=== PATIENT | female | born 1955 | race Caucasian/White ===

== ENCOUNTER 2019-01-31 07:12 | Day surgery (SDC) | payer BC ==
[~2019-01-31] VITALS: Ht 154.9 cm; Wt 104.7 kg
[2019-01-31] VITALS (23 sets, daily range): BP systolic 133–175; BP diastolic 58–77; PULSE 68–86; RESP 16–22; Ht 154.9 cm; Wt 104.7 kg
[~2019-01-31 07:12] MED LIST: AMLO2.5T78 PO; ASPI-817 PO; CHOL100062 PO; CLOT30CR24 TOP; DIAZEPAM 5 MG TAB PO ONE; DIPHENHYDRAMINE 50 MG CAP PO ONE; DOCU-159 PO; FAMOTIDINE 20 MG TAB PO ONE; GABA300C16 PO; GLIM4TAB PO; ISOS30TA67 PO; LANT3I SC; LORA0.5T PO; SERT50TA6 PO; SITA100T11 PO; SOD CHLORIDE 0.45% 1,000 ML IV SCH; TERB250T46 PO; TRIA15CR55 TOP; VALS1TAB82 PO
[2019-01-31] MEDS ORDERED: SITA100T11 PO (08:12)
[2019-01-31] MEDS ORDERED: GLIM4TAB PO (08:12)
[2019-01-31] MEDS ORDERED: SIMV40TA2 PO (08:13)
[2019-01-31] MEDS ORDERED: DOCU100T PO (08:13)
[2019-01-31] MEDS ORDERED: ASPI81TA52 PO ×2 (08:13→08:14)
[2019-01-31] MEDS ORDERED: METO-407 PO (08:13)
[2019-01-31] MEDS ORDERED: SERT-165 PO (08:14)
[2019-01-31] MEDS ORDERED: RANO10002 PO (08:14)
[2019-01-31] MEDS ORDERED: COMBIG5 BOTH EYES (08:15)
[2019-01-31] MEDS ORDERED: LATA2.5D2 BOTH EYES (08:15)
[2019-01-31] MEDS ORDERED: HEPARIN 1000 UNITS/ML 10 ML INJ ONE (09:28)
[2019-01-31] MEDS ORDERED: MIDAZOLAM 1 MG/ML 2 ML INJ ONE (09:28)
[2019-01-31] MEDS ORDERED: FENTAnyl 50 MCG/ML VIAL ONE (09:28)
[2019-01-31] MEDS ORDERED: NITROGLYCERIN (IC) 100 MCG/ML INJ ONE (09:29)
[2019-01-31] MEDS ORDERED: VERAPAMIL 5 MG INJ ONE (09:29)
[2019-01-31] MEDS ORDERED: IODIXANOL LOCM 100 ML BTL ONE (10:16)
[2019-01-31] MEDS ORDERED: LIDOCAINE 1% (MDV) 20 ML INJ ONE (10:16)
[2019-01-31] MEDS ORDERED: SOD CHLORIDE 0.9% 1,000 ML IV SCH (10:31)
--- NOTE | 2019-01-31 10:34 | SIPON ---
Date/Time of Note Date/Time of Note DATE: 01/31/19 TIME: 10:33 Operative Report Preoperative Diagnosis 1.Chest pain 2.abnl CTA Postoperative Diagnosis 1.nonobstructive cad 2.patent LCX stents Operation/Procedure Performed 1.[facility] Surgeon see signature line sales support assistant Bravo Anesthesia: moderate sedation Estimated blood loss: minimal Transfusion Required none Specimen none Grafts/Implants none Complications none MARYLIN PAUL Jan 31, 2019 10:34
[2019-01-31] MEDS ORDERED: morphine 2 MG INJ IV PRN (11:00)
[2019-01-31] MEDS ORDERED: ONDANSETRON 4 MG INJ IV PRN (11:00)
[2019-01-31] MEDS ORDERED: ACETAMINOPHEN 325 MG TAB PO PRN (11:00)
[2019-01-31] MEDS ORDERED: AL HYDROX/MG HYDROX/SIMETH 30 ML CUP PO PRN (11:00)
[2019-01-31] MEDS ORDERED: hydrALAzine 20 MG INJ ONE (11:47)
[2019-01-31] MEDS ORDERED: hydrALAzine 20 MG INJ IV ONE (12:00)
--- NOTE | 2019-01-31 14:58 | CARRPT ---
DATE OF PROCEDURE: 01/31/2019 TYPE OF PROCEDURES: 1. Left heart catheterization. 2. Coronary angiography. 3. Measurement of left ventricular end diastolic pressure. 4. Moderate conscious sedation. ATTENDING PHYSICIAN: Marylin Whitt MD REFERRING PHYSICIAN: Kavon Cruz MD INDICATION: Chest pain refractory to medical therapy. TYPE OF ANESTHESIA: Conscious and local. BRIEF HISTORY: Ms. Aburto is a 63-year-old female with history of hypertension, dyslipidemia, ernesto nary artery disease, status post prior PTCA and stent placement to circumflex in 2016, who presented with recurrent complaints of substernal chest pain, underwent a cardiac stress testing revealing ques tionable ischemia and then CTA that revealed possible stenosis in the LAD and circumflex distribution s. Given these findings, the patient was referred for and presents today to undergo left heart stoney terization to assess for possibility of significant obstructive coronary artery disease lending to sy mptoms of chest pain and subsequent positive stress test findings. DESCRIPTION OF PROCEDURE: After informed consent was obtained, the patient was brought to the [facility] cardiac catheterization lab where her right radial area was prepped in a steri le fashion. A 2% lidocaine was infiltrated into the right radial area in order to achieve adequate a nesthesia. Using the modified Seldinger technique, the radial artery was cannulated and a 6-[place] a rterial sheath was placed. A 6-[place] JL3.5 catheter was used to cannulate the left main coronary os tium. With contrast injection, multiple views of left coronary system were obtained. JL3.5 was flori graciela a guidewire and a JR4 was used to cannulate the right coronary arterial ostium. With contrast in jection, multiple views of right coronary system were obtained. JL4 was removed a guidewire and ____ _ additionally across the aortic valve and used to measure LVEDP and pullback across the aortic valve to assess for significant gradient, which there was none and removed. Subsequently at this time, th is completed procedure. The patient's sheath was removed. TR band was applied. There were no noted complications. FINDINGS: Coronary angiography: Left main is 4 mm, no significant focal stenoses. Circumflex proxi tee is a 3 mm vessel and in its mid body, there is a 20% stenosis. There is stented portion, which has no significant in-stent restenosis, widely patent. The remainder of the circumflex is free from significant focal stenoses. Two mid branching obtuse marginals are sub 2 mm vessel and no significa nt focal stenoses. LAD proximally is a 3 mm vessel, has a 20% stenosis and proximal portion of the L AD is free from significant focal stenoses and does just around the apex. There is a mid branching d iagonal 2 mm with no significant focal stenoses. The right coronary artery proximally is a 3.5 mm ve ssel and has very minimal luminal irregularities in mid portion has 20%, dominant vessel and therefor e gives off a 2.5 mm PDA, 2 mm posterolateral branch with 20% stenosis which then separates into 2 mu ch smaller daughter branches. Measurement of left ventricular end-diastolic volume about 12. No significant aortic stenosis by gra dient. TOTAL FLUOROSCOPY TIME: 2.4 minutes. TOTAL CONTRAST: 45 mL. IMPRESSION: 1. Mild nonobstructive coronary artery disease. 2. Widely patent circumflex stent. 3. Normal left heart filling pressures. 4. No significant aortic stenosis by gradient. RECOMMENDATIONS: In light of procedure and findings at this time, we would: 1. Maximize medical therapy. 2. Aggressive risk factor reduction. 3. The patient is to be readmitted to the same day surgery center for post catheterization observati on and continued management of symptoms with probable discharge later this afternoon. Dictated By: MARYLIN COBB/ALKA Conf#: [id number] DID#: [id number]
--- NOTE | 2019-01-31 19:01 | RADRPT ---
Vent Rate: 74 bpm RR Interval: 808 msec RI Interval: 171 msec QRS Duration: 90 msec QT Interval: 420 msec QTC Interval: 467 msec P-R-T [place]: 12 - -23 - 48 degrees Sinus rhythm...normal P axis, V-rate 50- 99 Borderline left axis deviation...QRS axis (-15,-29) Low voltage, precordial leads...precordial leads <1.0mV Anteroseptal infarct, old...Q >40mS, V1-V2 Electronically Signed By: Fuad Whitt
== END 2019-01-31 14:25 | disposition home or self-care (01) ==
LOC: SDS 07:12
PROVIDERS: ATTEND Internal Medicine
DX: I25.10 Atherosclerotic heart disease of native coronary artery without angina pectoris (principal); I10 Essential (primary) hypertension; E78.5 Hyperlipidemia, unspecified
CPT/HCPCS: 71045; 80053; 80061; 82962; 85025; 85610; 85730; 93005; 93458; C1887; J0360; J1644; J2250; J3010; Q9967; Z7610